=== PATIENT | female | born 1975 | race Two or more races ===

== ENCOUNTER 2016-08-20 16:12 | Emergency (ER) | payer MEDICAID ==
[~2016-08-20] VITALS: Ht 162.6 cm; Wt 79.7 kg
[2016-08-20] MEDS ORDERED: FAMOTIDINE 20 MG/2 ML IVP ONE (16:30)
[2016-08-20] MEDS ORDERED: ONDANSETRON 2MG/ML, 2ML IVPush ONE (16:30)
[2016-08-20] MEDS ORDERED: SODIUM CHLORIDE 0.9% 1,000ML IVBOLUS ONE (16:30)
[2016-08-20] MEDS ORDERED: MORPHINE SULFATE 4 MG/ML, 1ML IVPush PRN (16:30)
[2016-08-20] MEDS ORDERED: SODIUM CHLORIDE FLUSH 10ML SYR IVF ONE (16:30)
[2016-08-20 16:58] LABS: ASPARTATE AMINO TRANSFERASE 19 U/L (15-37); BLOOD UREA NITROGEN 10 mg/dL (7-18)
[2016-08-20] MEDS ORDERED: ONDANSETRON 2MG/ML, 2ML ONE (18:00)
[2016-08-20] MEDS ORDERED: MORPHINE SULFATE 4 MG/ML, 1ML ONE (18:00)
[2016-08-20] MEDS ORDERED: MAALOX/HYOSCYAMINE/LIDOCAINE 45 ML BOTTLE ONE (18:09)
[2016-08-20 18:25] LABS: PATH.CAST-FLAG NOT PRESENT; SPERM-FLAG NOT PRESENT; SRC-FLAG NOT PRESENT; XTAL-FLAG NOT PRESENT; YLC-FLAG NOT PRESENT
[2016-08-20] MEDS ORDERED: MAALOX/HYOSCYAMINE/LIDOCAINE 45 ML BOTTLE PO ONE (18:30)
[2016-08-20] MEDS ORDERED: OXYcodone/APAP 5/325MG TABLET ONE (18:46)
[2016-08-20] MEDS ORDERED: ONDANSETRON ODT 8 MG ONE (18:46)
[2016-08-20 18:51] VITALS: BP 113/68
[2016-08-20] MEDS ORDERED: OXYcodone/APAP 5/325MG TABLET PO ONE (19:30)
[2016-08-20] MEDS ORDERED: ONDANSETRON ODT 8 MG PO ONE (19:30)
[2016-08-20] MEDS ORDERED: PLEASE ENTER ALLERGIES MC SCH ×2 (19:30)
== END 2016-08-20 19:45 | disposition home or self-care (01) ==
LOC: ED 19:10
DX: K80.70 Calculus of gallbladder and bile duct without cholecystitis without obstruction (principal); K76.0 Fatty (change of) liver, not elsewhere classified
CPT/HCPCS: 36415; 76700; 80053; 81001; 83690; 84703; 85025; 87086; 93005; 99285; Q0162